=== PATIENT | male | born 1970 | race Caucasian/White ===

== ENCOUNTER 2019-09-17 10:05 | Outpatient (CLI) | payer OTHER, SELFPAY ==
[2019-09-17 10:53] LABS: Basophils # 0.1 10^3/uL (0.0-0.1); Basophils % 0.8 %; Eosinophils # 0.4 10^3/uL (0.0-0.8); Eosinophils % 3.2 %; Hematocrit 45.2 % (42.0-52.0); Hemoglobin 15.1 g/dL (11.7-16.6); Lymphocytes # 3.8 10^3/uL (0.8-4.8); Lymphocytes % 32.7 %; Mean Corpuscular HGB Conc 33.4 g/dL (30.0-36.0); Mean Corpuscular Hemoglobin 31.6 pg (28.0-34.0); Mean Corpuscular Volume 94.6 fL (80-94); Mean Platelet Volume 11.9 fL (7.4-10.4); Monocytes # 0.8 10^3/uL (0.2-0.9); Monocytes % 6.9 %; Neutrophils # 6.5 10^3/uL (1.8-7.7); Neutrophils % 56.1 %; Nucleated Red Blood Cells % 0 %; Platelet Count 232 10^3/cmm (130-400); Red Blood Count 4.78 10^6/uL (4.1-5.3); Red Cell Distribution Width 13.2 % (12.1-15.1); White Blood Count 11.6 10^3/uL (4.0-10.0)
[2019-09-17 11:11] LABS: Alanine Aminotransferase 18 U/L (0-41); Albumin Level 4.5 g/dL (3.5-5.2); Alkaline Phosphatase 72 IU/L (40-130); Anion Gap 15.2 (5-19); Aspartate Amino Transferase 23 U/L (0-40); Blood Urea Nitrogen 17 mg/dL (6-20); Calcium 9.4 mg/dL (8.5-10.5); Carbon Dioxide 25 mmol/L (22-29); Chloride 102 mmol/L (98-107); Globulin 3.1 g/dL (1.3-4.6); Glomerular Filtration Rate 53.6 mL/min (90-130); Glucose 110 mg/dL (65-115); Osmolality Calculated 283 mOsm/kg (285-295); Potassium 4.2 mmol/L (3.5-5.1); Sodium 138 mmol/L (136-145); Total Bilirubin 0.4 mg/dL (0.15-1.2); Total Protein 7.6 g/dL (6.6-8.7)
--- NOTE | 2019-09-17 18:06 | ONC FU_ITS ---
Dr. Estrella follow up note Patient: Fidencio Pierre Unit #: [id number]: 1970 Dicatated By: Chris Estrella M.D.Date of Visit:Sep 17, 2019 Onc Med Follow-up/Prog Note History of Present Illness: Mr. Fidencio Pierre is a 49 -year-old gentleman with history of elevated white blood counts, as per patient he was in 2016 or 17 when he was first informed about mildly elevated white blood count but never required any further investigation until recently when his white blood count gone up to 17,000, at that time his primary care physician got concerned about Possibility of leukemia, and that was the reason he was referred to hematology clinic Patient denies any recent infections or recurrent infections or signs symptoms suggestive of sinusitis but he has history of urethral stricture for which he recently underwent dilatation. 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 Patient denies any dysuria or hematuria denies any cough or sore throat denies any fever chills denies any night sweats denies any weight loss denies any peripheral lymphadenopathy denies any abdominal fullness denies any weight loss denies any diarrhea or constipation, denies any steroid intake. Patient has long-standing history of chronic smoking and he smoke about pack to pack and half a day and also drink alcohol excessively. Came for follow-up, complaining of generalized weakness and fatigue, since his last visit year ago, as per patient he lost about 40 pounds and now regained back but still complaining generalized weakness and fatigue no hemoptysis or hematemesis, no melena or hematochezia, no jaundice, no abdominal pain but something fullness. Off and on mild dysphagia. History of esophageal reflux disease, used to take Zantac or omeprazole, not anymore as with weight loss it did improve. But now recurring, responding well to omeprazole. Patient lost follow-up as he moved up north to [place] close to his family and recently moved back to [place]. Patient denies any night sweats, denies any weight loss, denies any peripheral lymphadenopathy or recurrent fevers. Medications: There is no information available for Current Medications - Patient. Allergies: Chantix, Penicillins, and Wellbutrin. Review of Systems: Constitutional - Appetite is poor and weight is comparable to last visit, however, Pt states his weight has flucuated significantly. Pt reports poor eating habits. No fever, chills, hot flashes, or night sweats. Energy level is poor, ENMT - No sinus congestion/drainage. No mouth sores. No sore throat or difficulty swallowing, Hematologic/Lymphatic - No unusual bruising or bleeding, Respiratory - Positive for shortness of breath and cough. No pleuritic pain or hemoptysis, Cardiovascular - No angina pain. Positive for palpitations, Gastrointestinal - Positive for nausea, no vomiting. Positive for heartburn. No diarrhea or constipation. No blood in the stool or black stools, Genitourinary (M) - Positive for dysuria, no hematuria. No urinary frequency. No urgency or incontinence, Musculoskeletal - Positive for back and shoulder pain, Neurologic - No headache, Positive for dizziness. Positive for numbness/tingling in extremities. Pt reports hx of head injury, Psychiatric - Positive for anxiety, depression and insomnia. Pt also reports falling asleep during the day. Vital Signs: Performed on Sep 17, 2019 11:48 Height - 69.00 in Weight - 179.0 lbs (LOW) BSA - 1.97 sq.m BMI - 26.43 Temperature - 97.7 F (LOW) Pulse - 66 /min Respiration - 18 /min BP - 112/68 mm(hg) O2 Sat - 99 % Pain - 0 Performance Status: 0 - Fully active, able to carry on all predisease activities without restrictions. (ECOG) Physical Examination: ENMT - No mouth sores, no thrush no jaundice, Respiratory - Lungs are clear, Cardiovascular - Regular rate and rhythm of heart, Abdomen - Soft, bowel sounds present, Extremities - No visible edema. Lab/Imaging: Most recent lab results are not available for this patient. 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 T1b, Nx MX, as per patient no other treatment was offered but follow-up with urologist in [facility] CT scan of abdomen pelvis done on 04/04/2018 showed spleen was unremarkable and there is a soft tissue attenuation measuring 3.3 x 2.5 cm within the right renal fossa, patient is status post right nephrectomy Plan: Discussed with patient regarding his labs white blood count 11.6 hemoglobin 15.1 crit 45.2 platelets 232,000 CMP within normal limits Clinically, patient doing reasonably well, history of significant weight loss, now recovered and other vague symptoms including generalized weakness and fatigue. At this point will consider CT scan of chest abdomen pelvis as patient has history of renal cell carcinoma. And also consider whole blood flow cytometry to rule out lymphoproliferative disorder causing persistent mild leukocytosis. Patient was advised to quit smoking and was offered any assistance he may need. He will return to clinic after CT scan for further discussion. Signed By: Chris Estrella M.D. <<Signature on File>>
== END 2019-09-17 10:06 | disposition home or self-care (01) ==
PROVIDERS: Visit Provider Internal Medicine Hematology & Oncology
DX: D72.829 Elevated white blood cell count, unspecified (principal); R53.1 Weakness; R53.83 Other fatigue; F17.210 Nicotine dependence, cigarettes, uncomplicated; Z85.528 Personal history of other malignant neoplasm of kidney; Z87.448 Personal history of other diseases of urinary system; Z72.89 Other problems related to lifestyle; Z90.5 Acquired absence of kidney
CPT/HCPCS: 80053; 85025; 99214

== ENCOUNTER 2019-09-20 13:04 | Outpatient (CLI) | payer OTHER, SELFPAY ==
--- NOTE | 2019-09-20 14:04 | CTR_ITS ---
PROCEDURE INFORMATION: Exam: CT Chest With Contrast Exam date and time: 09/20/2019 2:30 PM Age: 49 years old Clinical indication: Follow-up oncological assessment; Primary cancer: R kidney; No known metastasis; Current or recent treatment: No current treatment; Prior surgery; Surgery date: 6+ months; Surgery type: R nephrectomy; Patient HX: HX of CA C/O nausea, wt loss and dry cough; Additional info: Unexplained weight loss/hx of kidney cancer TECHNIQUE: Imaging protocol: Computed tomography of the chest with intravenous contrast. Axial, coronal and sagittal reformatted images were created and reviewed. Radiation optimization: All CT scans at this facility use at least one of these dose optimization techniques: automated exposure control; mA and/or kV adjustment per patient size (includes targeted exams where dose is matched to clinical indication); or iterative reconstruction. Contrast material: VISI 320; Contrast volume: 95 ml; Contrast route: INTRAVENOUS (IV); COMPARISON: CT abdomen pelvis wo con [id number] 10/07/2018 8:58 PM RADIATION DOSE METRICS: Total DLP (mGy-cm): 1541.04 FINDINGS: Lungs: Right lower lobe calcified granuloma. No mass. No consolidation. Pleural space: Unremarkable. No pneumothorax. No pleural effusion. Heart: Unremarkable. No cardiomegaly. No pericardial effusion. Mediastinal space: Small hiatal hernia. Aorta: Unremarkable. No aneurysm or dissection. Lymph nodes: Calcified mediastinal lymph nodes, consistent with prior granulomatous disease. No pathologically enlarged lymph nodes. Bones/joints: No acute osseous abnormality. Osteopenia. Mild degenerative changes. Soft tissues: Unremarkable. IMPRESSION: 1. No evidence of metastatic disease. 2. Additional findings, as above. PROCEDURE INFORMATION: Exam: CT Abdomen And Pelvis With Contrast Exam date and time: 09/20/2019 2:30 PM Age: 49 years old Clinical indication: Follow-up oncological assessment; Primary cancer: R kidney; No known metastasis; Current or recent treatment: No current treatment; Prior surgery; Surgery date: 6+ months; Surgery type: R nephrectomy; Patient HX: HX of CA C/O nausea, wt loss and dry cough; Additional info: Unexplained weight loss/hx of kidney cancer TECHNIQUE: Imaging protocol: Computed tomography of the abdomen and pelvis with intravenous contrast. Axial, coronal and sagittal reformatted images were created and reviewed. Radiation optimization: All CT scans at this facility use at least one of these dose optimization techniques: automated exposure control; mA and/or kV adjustment per patient size (includes targeted exams where dose is matched to clinical indication); or iterative reconstruction. Contrast material: VISI 320; Contrast volume: 95 ml; Contrast route: INTRAVENOUS (IV); COMPARISON: CT abdomen pelvis wo con [id number] 10/07/2018 8:58 PM RADIATION DOSE METRICS: Total DLP (mGy-cm): 1541.04 FINDINGS: Liver: Unremarkable. Gallbladder and bile ducts: No radiodense gallstones. No biliary ductal dilatation. Pancreas: Unremarkable. Spleen: Unremarkable. Adrenals: Unremarkable. Kidneys and ureters: Status post right nephrectomy. No radiodense calculi. No hydronephrosis. Stomach and bowel: Moderate amount of retained stool in the colon. No obstruction. No bowel wall thickening. No pneumatosis. Appendix: Normal. Intraperitoneal space: No free fluid. No organized fluid collection. No free air. Vasculature: Minimal atherosclerotic disease. No aneurysm. Lymph nodes: Small mesenteric lymph nodes, nonspecific in appearance. No pathologically enlarged lymph nodes. Bladder: Mild circumferential urinary bladder wall thickening, likely secondary to underdistention. Reproductive: Unremarkable. Bones/joints: No acute osseous abnormality. Osteopenia. Mild degenerative changes. Soft tissues: Small, fat containing inguinal hernias. CT/CT chest abd pel w con* IMPRESSION: 1. No evidence of metastatic disease. 2. Additional findings, as above. Radiation Dose CTDIVOL = (mGy): DLP = 1541.04~1541.04 (mGy-cm)
[2019-09-20] MEDS: iodixanol 320 mg/mL 100mL Btl IV (14:37)
== END 2019-09-20 13:05 | disposition home or self-care (01) ==
PROVIDERS: Visit Provider Internal Medicine Hematology & Oncology
DX: R63.4 Abnormal weight loss (principal); Z85.528 Personal history of other malignant neoplasm of kidney
CPT/HCPCS: 71260; 74177

== ENCOUNTER 2019-10-16 09:49 | Outpatient (CLI) | payer OTHER, SELFPAY ==
[2019-10-16 10:48] LABS: Basophils # 0.1 10^3/uL (0.0-0.1); Basophils % 0.9 %; Eosinophils # 0.4 10^3/uL (0.0-0.8); Eosinophils % 3.4 %; Hematocrit 44.5 % (42.0-52.0); Hemoglobin 14.6 g/dL (11.7-16.6); Mean Corpuscular HGB Conc 32.8 g/dL (30.0-36.0); Mean Corpuscular Hemoglobin 32.9 pg (28.0-34.0); Mean Corpuscular Volume 100.2 fL (80-94); Monocytes # 0.9 10^3/uL (0.2-0.9); Monocytes % 7.4 %; Neutrophils # 6.37 10^3/uL (1.8-7.7); Neutrophils % 53.9 %; Nucleated Red Blood Cells % 0 %; Platelet Count 204 10^3/cmm (130-400); Red Blood Count 4.44 10^6/uL (4.1-5.3); Red Cell Distribution Width 13.2 % (12.1-15.1); White Blood Count 11.8 10^3/uL (4.0-10.0)
[2019-10-16 11:03] LABS: Alanine Aminotransferase 21 U/L (0-41); Albumin Level 4.5 g/dL (3.5-5.2); Alkaline Phosphatase 68 IU/L (40-130); Anion Gap 14.1 (5-19); Aspartate Amino Transferase 23 U/L (0-40); Blood Urea Nitrogen 16 mg/dL (6-20); Carbon Dioxide 24 mmol/L (22-29); Chloride 106 mmol/L (98-107); Glomerular Filtration Rate 53.6 mL/min (90-130); Glucose 100 mg/dL (65-115); Osmolality Calculated 286 mOsm/kg (285-295); Potassium 4.1 mmol/L (3.5-5.1); Sodium 140 mmol/L (136-145); Total Bilirubin 0.2 mg/dL (0.15-1.2); Total Protein 7.5 g/dL (6.6-8.7)
--- NOTE | 2019-10-16 15:57 | ONC FU_ITS ---
Dr. Estrella follow up note Patient: Fidencio Pierre Unit #: [id number]: 1970 Dicatated By: Chris Estrella M.D.Date of Visit:Oct 16, 2019 Onc Med Follow-up/Prog Note History of Present Illness: Mr. Fidencio Pierre is a 49 -year-old gentleman with history of elevated white blood counts, as per patient he was in 2016 or 17 when he was first informed about mildly elevated white blood count but never required any further investigation until recently when his white blood count gone up to 17,000, at that time his primary care physician got concerned about Possibility of leukemia, and that was the reason he was referred to hematology clinic Patient denies any recent infections or recurrent infections or signs symptoms suggestive of sinusitis but he has history of urethral stricture for which he recently underwent dilatation. 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 Patient denies any dysuria or hematuria denies any cough or sore throat denies any fever chills denies any night sweats denies any weight loss denies any peripheral lymphadenopathy denies any abdominal fullness denies any weight loss denies any diarrhea or constipation, denies any steroid intake. Patient has long-standing history of chronic smoking and he smoke about pack to pack and half a day and also drink alcohol excessively. Came for follow-up, complaining of generalized weakness and fatigue, since his last visit year ago, as per patient he lost about 40 pounds and now regained back but still complaining generalized weakness and fatigue no hemoptysis or hematemesis, no melena or hematochezia, no jaundice, no abdominal pain but something fullness. Off and on mild dysphagia. History of esophageal reflux disease, used to take Zantac or omeprazole, not anymore as with weight loss it did improve. But now recurring, responding well to omeprazole. Patient lost follow-up as he moved up north to [place] close to his family and recently moved back to [place]. Patient denies any night sweats, denies any weight loss, denies any peripheral lymphadenopathy or recurrent fevers. Follow-up CT scan of chest done on September 20, 2019 showed no evidence of metastatic disease or lymphadenopathy Whole blood flow cytometry done For persistent leukocytosis,on September 17, 2019 showed no atypical flow cytometric findings Came for follow-up, denies any specific complaints, no fever chills, no nausea or vomiting, no diarrhea constipation, no hematuria or dysuria, no night sweats, no recurrent fever, no peripheral lymphadenopathy, still smoke about pack a day, said he is trying to quit smoking. Medications: chlordiazePOXIDE HCl 3 Capsule (of 25 mg) Oral four times a day, Tadalafil 1 Tablet (of 10 mg) Oral q 7 days Allergies: Chantix, Penicillins, and Wellbutrin. Review of Systems: Constitutional - Appetite is poor and weight is comparable to last visit, however, Pt states his weight has flucuated significantly. Pt reports poor eating habits. No fever, chills, hot flashes, or night sweats. Energy level is poor, ENMT - No sinus congestion/drainage. No mouth sores. No sore throat or difficulty swallowing, Hematologic/Lymphatic - No unusual bruising or bleeding, Respiratory - Positive for shortness of breath and cough. No pleuritic pain or hemoptysis, Cardiovascular - No angina pain. Positive for palpitations, Gastrointestinal - Positive for nausea, no vomiting. Positive for heartburn. No diarrhea or constipation. No blood in the stool or black stools, Genitourinary (M) - Positive for dysuria, no hematuria. No urinary frequency. No urgency or incontinence, Musculoskeletal - Positive for back and shoulder pain, Neurologic - No headache, Positive for dizziness. Positive for numbness/tingling in extremities. Pt reports hx of head injury, Psychiatric - Positive for anxiety, depression and insomnia. Pt also reports falling asleep during the day. Vital Signs: Performed on Oct 16, 2019 11:42 Height - 69.00 in Weight - 175.6 lbs (LOW) BSA - 1.95 sq.m BMI - 25.93 Pulse - 61 /min Respiration - 18 /min BP - 120/71 mm(hg) O2 Sat - 97 % Pain - 0 Performance Status: 0 - Fully active, able to carry on all predisease activities without restrictions. (ECOG) Physical Examination: ENMT - No mouth sores, no, Respiratory - Lungs are clear, Cardiovascular - Regular rate and rhythm of heart, Abdomen - Soft, bowel sounds, Extremities - No visible edema, no peripheral lymphadenopathy. Lab/Imaging: Test performed on Sep 17, 2019 10:38 Sodium 138 mmol/L Potassium 4.2 mmol/L Chloride 102 mmol/L CO2 25 mmol/L Anion Gap 15.2 BUN 17 mg/dL Creatinine 1.4 mg/dL Cr Clearance (Est) 72.50 mL/min eGFR 53.6 mL/min Glucose 110 mg/dL Calcium 9.4 mg/dL Protein, Total 7.6 g/dL Albumin 4.5 g/dL Globulin 3.1 g/dL Bilirubin, Total 0.4 mg/dL ALT (SGPT) 18 U/L AST (SGOT) 23 U/L Alkaline Phosphatase 72 IU/L WBC 11.6 10 3/uL RBC 4.78 10 6/uL HGB 15.1 g/dL HCT 45.2 % MCV 94.6 fL MCH 31.6 pg MCHC 33.4 g/dL RDW 13.2 % Platelet Count 232 10 3/cmm MPV 11.9 fL Neutrophils 6.5 10 3/uL Lymphocytes 3.8 10 3/uL Monocytes 0.8 10 3/uL Eosinophils 0.4 10 3/uL Basophils 0.1 10 3/uL Neutrophil % 56.1 % Lymphocyte % 32.7 % Monocyte % 6.9 % Eosinophil % 3.2 % Basophils % 0.8 % NRBC % 0 % Impression: Mild isolated leukocytosis with a normal hemoglobin and platelets count, etiology unclear could be due to subclinical bronchitis due to chronic heavy smoking or smoking itself or underlying urine tract infection, has history of urethral stricture or chronic inflammation or myeloproliferative disorder but less likely As whole blood flow cytometry done on September 17, 2019 showed no abnormality Chronic smoking Alcohol use 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 T1b, Nx MX, as per patient no other treatment was offered but follow-up with urologist in [place] CT scan of abdomen pelvis done on 04/04/2018 showed spleen was unremarkable and there is a soft tissue attenuation measuring 3.3 x 2.5 cm within the right renal fossa, patient is status post right nephrectomy Plan: Discussed with patient regarding his labs white blood count 11.8 hemoglobin 14.6 crit 44.5 platelets 204,000 CMP within normal limit except creatinine 1.4 and whole blood flow cytometry which showed no abnormality and CT scan of chest abdomen pelvis done on September 20, 2019 showed no evidence of recurrence of disease or lymphadenopathy or organomegaly Clinically, patient is doing well with no B signs symptoms or other symptom suggestive of recurrence of disease, his follow-up CT scan of chest abdomen pelvis shows no evidence of recurrence of renal cell carcinoma or any central lymphadenopathy or organomegaly. Whole blood flow cytometry was done because of persistent leukocytosis and it shows no abnormality so his mild leukocytosis could be due to chronic smoking or smoking related chronic bronchitis. Patient was advised to quit smoking. At this point no further work-up from hematological/oncology point of view, patient will follow-up with primary care physician as planned and will see him on as-needed basis. Signed By: Chris Estrella M.D. <<Signature on File>>
== END 2019-10-16 09:50 | disposition home or self-care (01) ==
LOC: ONCMED 09:52
PROVIDERS: Visit Provider Internal Medicine Hematology & Oncology
DX: D72.829 Elevated white blood cell count, unspecified (principal); F17.210 Nicotine dependence, cigarettes, uncomplicated; Z87.448 Personal history of other diseases of urinary system; Z72.89 Other problems related to lifestyle; Z85.528 Personal history of other malignant neoplasm of kidney; Z90.5 Acquired absence of kidney
CPT/HCPCS: 80053; 85025; G0463

== ENCOUNTER 2020-03-25 11:22 | Outpatient (CLI) | payer OTHER, SELFPAY ==
--- NOTE | 2020-03-25 13:33 | PTH.FRZRPT ---
Frozen Section Notes Specimen(s): Right cheek subcutaneous mass Gross: The specimen is received is an ellipse of skin measuring 1 cm in length and 0.7 cm in thickness. It is labeled with the patient's name and MRN number and received fresh for frozen section diagnosis. The tips are cut and submitted in formalin the specimen is serially sectioned and a small 0.3 cm circular lesion is identified. A section of which is submitted for frozen section diagnoses in FS 1. Preliminary Impression: Skin, right cheek subcutaneous mass , excision: ?Benign epithelial inclusion cyst. ?No malignancy identified. - Specimen Information Pathologist: Jordy Fortune Date: 03/25/20 Specimen reported at what time: 10:16 - Clinician Specimen collection time: 10:04 Clinician reported to: Rod Sarabia
== END 2020-03-25 11:23 | disposition home or self-care (01) ==
LOC: LAB 11:24
PROVIDERS: Visit Provider Specialist
DX: R22.0 Localized swelling, mass and lump, head (principal)
CPT/HCPCS: 88307